=== PATIENT | male | born 1995 | race African-American/Black ===

== ENCOUNTER 2016-03-21 18:34 | Emergency (ER) | payer SELFPAY ==
[2016-03-21 18:43] VITALS: BP 135/78
[2016-03-21] MEDS ORDERED: Ibuprofen TAB* 400 MG PO ONE (20:00)
--- NOTE | 2016-03-21 20:14 | ED ---
Throat Pain/Nasal Congestion - HPI Summary HPI Summary: Pt here w/ dental pain - started after cracking a piece of his tooth off while eating earlier today. Pain is intermittent and he is having a difficult time tolerating it. Has not taken anything for this pain yet. No alleviating nor exacerbating factors. Denies recent pain, swelling or infection here. Has never seen a dentist. NOTE: was seen last week for gluteal abscess - pt reports this is completely better and did not need to take antibiotics. - History of Current Complaint Chief Complaint: EDDentalPain Time Seen by Provider: 03/21/16 19:57 Hx Obtained From: Patient - Allergies/Home Medications Allergies/Adverse Reactions: Allergies Allergy/AdvReac Type Severity Reaction Status Date / Time No Known Allergies Allergy Verified 05/09/15 12:15 PMH/Surg Hx/FS Hx/Imm Hx Previously Healthy: Yes - just recovered from gluteal abscess Endocrine/Hematology History: Denies: Hx Blood Disorders Respiratory History: Reports: Hx Asthma Infectious Disease History: No Infectious Disease History: Denies: Hx of Known/Suspected MRSA, Traveled Outside the [place] in Last 30 Days - Family History Known Family History: Positive: None - Social History Alcohol Use: None Hx Substance Use: No Substance Use Type: Reports: Marijuana Substance Use Comment - Amount & Last Used: last used today Smoking Status (MU): Never Smoked Tobacco Review of Systems Negative: Fever, Chills Negative: Drainage, Erythema Positive: Dental Pain - see HPI. Negative: Sore Throat, Ear Ache, Nasal Discharge Negative: Chest Pain Negative: Shortness Of Breath, Cough Negative: Abdominal Pain, Vomiting, Diarrhea, Nausea Positive: no symptoms reported Negative: Rash, Bruising Negative: Headache Psychological: Normal All Other Systems Reviewed And Are Negative: Yes Physical Exam Triage Information Reviewed: Yes Vital Signs On Initial Exam: Initial Vitals Temp Pulse Resp BP Pulse Ox 98.0 F 73 16 135/78 99 03/21/16 18:40 03/21/16 18:40 03/21/16 18:40 03/21/16 18:40 03/21/16 18:40 Vital Signs Reviewed: Yes Appearance: Positive: Well-Appearing, Well-Nourished, Pain Distress - mild Skin: Positive: Warm, Dry - no erythema over face Head/Face: Positive: Normal Head/Face Inspection - no edema, NTTP Eyes: Positive: Normal, EOMI, Conjunctiva Clear. Negative: Discharge ENT: Positive: Hearing grossly normal, Pharynx normal, TMs normal. Negative: Nasal congestion, Nasal drainage Dental: Positive: Dental Fracture @ - #18 - surface appears to have fractured away from tooth. Negative: Gross Decay/Caries @, Abscess @, Cellulitis @, Bleeding Neck: Positive: Supple, Nontender, No Lymphadenopathy Respiratory/Lung Sounds: Positive: Clear to Auscultation, Breath Sounds Present. Negative: Rales, Rhonchi, Stridor, Wheezes Cardiovascular: Positive: Normal, RRR Abdomen Description: Positive: Nontender Bowel Sounds: Positive: Present Musculoskeletal: Positive: Normal, Strength/ROM Intact - FROM neck w/o pain or restriction Neurological: Positive: Normal, Sensory/Motor Intact, Alert, Oriented to Person Place, Time, CN Intact II-III Psychiatric: Positive: Normal Procedures - Procedure Summary Procedure Summary: Pt rinsed mouth with sterile saline 5 x - then topical anesthetic w/ cetacaine applied - #18 sealed w/ dycal - pt reports pain resolved and tolerated procedure well Diagnostics - Vital Signs Vital Signs Temp Pulse Resp BP Pulse Ox 03/21/16 18:40 98.0 F 73 16 135/78 99 - Laboratory Lab Statement: Any lab studies that have been ordered have been reviewed, and results considered in the medical decision making process. Re-Evaluation - Re-Evaluation First Eval Change: Improved EENT Course/Dx - Diagnoses Provider Diagnoses: Tooth fracture Discharge - Discharge Plan Condition: Stable Disposition: HOME Prescriptions: Ibuprofen TAB* [Motrin TAB* 800 MG] 800 mg PO Q8HR PRN #20 tab PRN Reason: Pain Patient Education Materials: Acute Dental Trauma (ED) Referrals: No Primary Care Phys,NOPCP [Primary Care Provider] - Additional Instructions: You appear to have a dental fracture today. This has been temporarily repaired with a sealant however you need to follow up with your dentist JANENE. *If you develop fever, chills, neck pain or facial swelling, return to ED
== END 2016-03-21 20:29 | disposition home or self-care (01) ==
LOC: ED 18:34
DX: S02.5XXA Fracture of tooth (traumatic), initial encounter for closed fracture (principal); X58.XXXA Exposure to other specified factors, initial encounter; Y92.9 Unspecified place or not applicable
CPT/HCPCS: 99282; A9270-GY

== ENCOUNTER → 2017-04-07 10:53 | Emergency (ER) | payer OTHER ==
[~2017-04-07 10:53] MED LIST: Cephalexin CAP* 500 MG PO ONE; HYDROcodone/ACETAMIN 5-325 MG* 1 TAB PO ONE; Lidocaine 1%* 5 ML VIAL INJ ONE; Sulfamethox/Trimethoprim DS 800/160* TAB PO ONE; Tetan/Diph/Pertus SYR(Tdap)* 0.5 ML SYR(BOOSTRIX) use SYR IM ONE
[2017-04-07 10:57] VITALS: BP 142/75
--- NOTE | 2017-04-07 12:56 | ED ---
Skin Complaint - HPI Summary HPI Summary: 21 male presents to ED with complaints of a lump on his lower back that began ~ 4 days ago and has increased in size and has become more painful since. Admits to it being red. Has had one before a year ago without known etiology or complication. Denies IV drug use. Denies drainage or fever/chills. No other skin complaints. Patient denies PMHx. Has been taking ibuprofen without significant relief. States touch and applying pressure (sitting laying on) makes his pain worse. Did not have previous one I&D it popped, drain on own and resolved with antibiotics. No other complaints - History of Current Complaint Chief Complaint: EDRashSkinAbscess Time Seen by Provider: 04/07/17 12:02 Stated Complaint: LUMP ON BACK Hx Obtained From: Patient Onset/Duration: Started Days Ago, Still Present, Worse Since Skin Exposure Onset/Duration: Days Ago Timing: Constant Onset Severity: Mild Current Severity: Moderate Pain Intensity: 6 Pain Scale Used: 0-10 Numeric Skin Location: Discrete - "lower back" intergluteal cleft area Character: Swelling, Redness, Raised, Painful Aggravating Symptom(s): Nothing Alleviating Symptom(s): Nothing Associated Signs & Symptoms: Negative - Allergy/Home Medications Allergies/Adverse Reactions: Allergies Allergy/AdvReac Type Severity Reaction Status Date / Time No Known Allergies Allergy Verified 05/09/15 12:15 PMH/Surg Hx/FS Hx/Imm Hx Endocrine/Hematology History: Denies: Hx Blood Disorders Respiratory History: Reports: Hx Asthma - Surgical History Surgery Procedure, Year, and Place: n/a - Immunization History Immunizations Up to Date: Yes Infectious Disease History: No Infectious Disease History: Denies: Hx of Known/Suspected MRSA, Traveled Outside the in Last 30 Days - Family History Known Family History: Positive: None - Social History Alcohol Use: Occasionally Hx Substance Use: No Substance Use Type: Reports: None, Marijuana Substance Use Comment - Amount & Last Used: last used today Smoking Status (MU): Current Some Day Smoker Review of Systems Constitutional: Negative Cardiovascular: Negative Respiratory: Negative Positive: Rash - abscess, pain All Other Systems Reviewed And Are Negative: Yes Physical Exam Triage Information Reviewed: Yes Vital Signs On Initial Exam: Initial Vitals Temp Pulse Resp BP Pulse Ox 97.5 F 63 16 142/75 100 04/07/17 10:55 04/07/17 10:55 04/07/17 10:55 04/07/17 10:55 04/07/17 10:55 Vital Signs Reviewed: Yes Appearance: Positive: Well-Appearing, Well-Nourished, Pain Distress - mild to moderate not lying or sitting on bottom Skin: Positive: Warm, Skin Color Reflects Adequate Perfusion, Dry, Erythema @ - and edema, palpable indurated abscess with fluctuance at intergluteal cleft area tender and warm on palpation, Other - rest of skin exam normal. Negative: Cold, Numb, Cyanosis @, Pale Head/Face: Positive: Normal Head/Face Inspection Eyes: Positive: Conjunctiva Clear Neck: Positive: Supple, Nontender, No Lymphadenopathy Respiratory/Lung Sounds: Positive: Clear to Auscultation, Breath Sounds Present. Negative: Rales, Rhonchi, Wheezes Cardiovascular: Positive: Normal, RRR, Pulses are Symmetrical in both Upper and Lower Extremities Musculoskeletal: Positive: Normal, Strength/ROM Intact. Negative: Limited @, Interruption @, Pain @ Neurological: Positive: Normal, Sensory/Motor Intact, Alert, Oriented to Person Place, Time Procedures - Incision and Drainage Site: pilonidal cyst, intergluteal cleft area Anesthesia: Local, Lidocaine Instrument(s): Scalpel Packing: Gauze Diagnostics - Vital Signs Vital Signs Temp Pulse Resp BP Pulse Ox 04/07/17 10:55 97.5 F 63 16 142/75 100 - Laboratory Lab Statement: Any lab studies that have been ordered have been reviewed, and results considered in the medical decision making process. Course/Dx - Course Course Of Treatment: pilonidal cyst with abscess was I&D using sterile procedure without compliation. was packed with idoform. wound culture obtained and results pending. afebrile and normal vitals. no concern for sepsis at this time. will d/c on bactrim and keflex, given first dose while in ED. no toxic appearance. warm soaks, keep clean and dry. re-pack and evaluate in 2 days, aware of worsening signs and sympoms. naproxen for pain. No concerns for other etiology at this time. Follow up. - Differential Diagnoses - Skin Complaint Differential Diagnoses: Abscess, Cellulitis, MRSA, Other - pilonidal cyst - Diagnoses Provider Diagnoses: Pilonidal cyst with abscess Discharge - Discharge Plan Condition: Stable Disposition: HOME Prescriptions: Cephalexin CAP* [Keflex CAP*] 500 mg PO TID #30 cap Naproxen TAB* [Naprosyn 375 mg TAB*] 375 mg PO Q8H #15 tab Sulfamethox/Trimethoprim DS* [Bactrim DS 800/160 TAB*] 1 tab PO BID #20 tab Patient Education Materials: Pilonidal Cyst (ED), Abscess (ED), Incision and Drainage (ED), Abscess Follow-up (ED) Referrals: [facility] [Outside] Additional Instructions: Follow up in 2 days for re-evaluation and re-packing. Take prescribed antibiotic and pain medication as directed. Warm soaks, multiple times daily, keep clean and dry. Follow up with PCP. Any new or worsening symptoms please seek medical attention promptly, as discussed.
== END | disposition home or self-care (01) ==
LOC: ED 10:53
DX: L05.01 Pilonidal cyst with abscess (principal); F17.200 Nicotine dependence, unspecified, uncomplicated
CPT/HCPCS: 10080; 87070; 87205; 87640; 87641; 90715; 99282; A9270-GY

== ENCOUNTER 2017-10-20 15:43 | Emergency (ER) | payer SELFPAY ==
[2017-10-20] MEDS ORDERED: HYDROcodone/ACETAMIN 5-325 MG* 1 TAB PO ONE (16:21)
[2017-10-20] MEDS ORDERED: NS 0.9% 1000 ML* 1,000 ML IV ONE (16:57)
--- NOTE | 2017-10-20 17:16 | ED ---
Skin Complaint - HPI Summary HPI Summary: Patient is a 22-year-old male who presents emergency department for an abscess to his buttocks 4 days. Patient states he has had abscesses drained in the past. He states that he noticed a small painful lump to his right inner buttocks that has progressively gotten larger and more painful over the last 4 days. Patient states he is having issues walking and sitting secondary to pain. He denies past medical history. Denies fever, chills, nausea, vomiting. Symptoms are mild to moderate in severity. Touching affected area makes symptoms worse. Nothing makes symptoms better. - History of Current Complaint Chief Complaint: EDRashSkinAbscess Time Seen by Provider: 10/20/17 15:59 Stated Complaint: ABSCESS ON BACK Hx Obtained From: Patient Pain Intensity: 10 - Allergy/Home Medications Allergies/Adverse Reactions: Allergies Allergy/AdvReac Type Severity Reaction Status Date / Time No Known Allergies Allergy Verified 05/09/15 12:15 Home Medications: Home Medications NK [No Home Medications Reported] 10/20/17 [History Confirmed 10/20/17] PMH/Surg Hx/FS Hx/Imm Hx Previously Healthy: Yes Endocrine/Hematology History: Denies: Hx Blood Disorders Respiratory History: Reports: Hx Asthma - Surgical History Surgery Procedure, Year, and Place: n/a Infectious Disease History: No Infectious Disease History: Denies: Hx of Known/Suspected MRSA, Traveled Outside the [place] in Last 30 Days - Family History Known Family History: Positive: None Family History: Noncontributory - Social History Lives: With Family Alcohol Use: Daily Alcohol Amount: 16 beers yesterday, denies withdrawal sx Hx Substance Use: No Substance Use Type: Reports: Marijuana Substance Use Comment - Amount & Last Used: last used today Smoking Status (MU): Current Some Day Smoker Review of Systems Constitutional: Negative Negative: Fever, Chills Gastrointestinal: Negative Negative: Abdominal Pain, Vomiting, Nausea Positive: Other - buttocks abscess All Other Systems Reviewed And Are Negative: Yes Physical Exam Triage Information Reviewed: Yes Vital Signs On Initial Exam: Initial Vitals Temp Pulse Resp BP Pulse Ox 99 F 84 16 115/81 96 10/20/17 15:45 10/20/17 15:45 10/20/17 15:45 10/20/17 15:45 10/20/17 15:45 Vital Signs Reviewed: Yes Appearance: Positive: Pain Distress - Patient lying in prone position on bed, appears uncomfortable and nontoxic. Skin: Positive: Warm, Dry, Other - Roughly 7 cm area of indurated area of fluctuance, erythema and tenderness noted to the distal inner right buttocks extending into the rectum. No drainage. Head/Face: Positive: Normal Head/Face Inspection Eyes: Positive: Normal, EOMI Neck: Positive: Supple Neurological: Positive: Normal, CN Intact II-III Diagnostics - Vital Signs Vital Signs Temp Pulse Resp BP Pulse Ox 10/20/17 15:45 99 F 84 16 115/81 96 - Laboratory Lab Statement: Any lab studies that have been ordered have been reviewed, and results considered in the medical decision making process. Course/Dx - Course Course Of Treatment: Patient presenting to the ER for a buttocks abscess. He is afebrile and nontoxic appearing. Given the size and location of abscess it is concerning that the rectum or bowel may be involved. Will obtain CT scan with contrast for further evaluation of abscess. Basic blood work drawn. Patient started on IV fluids. Hydrocodone given for pain. Patient will be signed out to Rony Ramos for testing results, further care and appropriate disposition. - Differential Diagnoses - Skin Complaint Differential Diagnoses: Abscess, Cellulitis - Diagnoses Provider Diagnoses: Abscess and cellulitis of gluteal region Discharge - Sign-Out/Discharge Documenting (check all that apply): Sign-Out Patient Signing out patient TO: Rony Ramos - Discharge Plan Referrals: No Primary Care Phys,NOPCP [Primary Care Provider] -
[2017-10-20 17:20] LABS: ABS Basophils 0.1 10^3/ul (0-0.2); ABS Eosinophils 0.1 10^3/ul (0-0.6); ABS Lymphocytes 1.4 10^3/ul (1.0-4.8); ABS Monocytes 1.2 10^3/ul (0-0.8); ABS Neutrophils 10.2 10^3/ul (1.5-7.7); ABS Nucleated RBC 0 10^3/ul; Eosinophil % 0.7 % (0-6); Hematocrit 40 % (42-52); Hemoglobin 13.5 g/dl (14.0-18.0); Lymphocyte % 10.6 % (25-47); Mean Corpuscular HGB Conc 34 g/dl (31-36); Mean Corpuscular Hemoglobin 34 pg (27-31); Mean Corpuscular Volume 100 fL (80-94); Mean Platelet Volume 7.8 um3 (7.4-10.4); Nucleated Red Blood Cells % 0; Platelet Count 239 10^3/ul (150-450); Red Blood Count 3.94 10^6/ul (4.00-5.40); Red Cell Distribution Width 13 % (10.5-15); White Blood Count 12.9 10^3/ul (3.5-10.8)
[2017-10-20 17:34] LABS: EGFR Non-African American 95.1 (>60)
[2017-10-20] MEDS ORDERED: Iohexol 300* (CONTRAST) 10 ML SDV IV ONE (17:52)
--- NOTE | 2017-10-20 22:00 | RAD ---
EXAM: CT Pelvis With Intravenous Contrast CLINICAL HISTORY: 22 years old, male; Signs and symptoms; Mass, lump, or swelling; Other: Right buttock; Patient HX: Evaluate for abcess right buttock, difficulty in walking and sitting; Additional info: Abscess TECHNIQUE: Axial computed tomography images of the pelvis with intravenous contrast. All CT scans at this facility use at least one of these dose optimization techniques: automated exposure control; mA and/or kV adjustment per patient size (includes targeted exams where dose is matched to clinical indication); or iterative reconstruction. Coronal and sagittal reformatted images were created and reviewed. CONTRAST: 105 mL of OMNIPAQUE 300 administered intravenously. COMPARISON: No relevant prior studies available. FINDINGS: Bowel: Unremarkable. No obstruction. No mucosal thickening. Appendix: No findings to suggest acute appendicitis. Intraperitoneal space: Unremarkable. No free air. No significant fluid collection. Bladder: Unremarkable. No mass. Reproductive: Unremarkable as visualized. Bones/joints: No acute fracture. No dislocation. Soft tissues: Extensive edema and fat stranding of the medial right buttock. There is a enhancing fluid collection measuring 3.5 x 1.9 x 4 cm([id number]) in the medial right buttock. There is fat stranding and edema of the left medial buttock. Skin thickening of right medial buttock consistent with cellulitis. Vasculature: Unremarkable. No lower abdominal aortic aneurysm. Lymph nodes: Unremarkable. No enlarged lymph nodes. IMPRESSION: Right medial buttock fluid collection/abscess measuring 3.5 x 1.9 x 4.0 cm. Extensive soft tissue edema and fat stranding. Skin thickening of the medial right thigh consistent with cellulitis.
[2017-10-20] MEDS ORDERED: Bupivacaine 0.25% EPI 200,000* 30 ML SDV INJ ONE (22:36)
[2017-10-20] MEDS ORDERED: Bupivacaine 0.5% W/EPI SDV* 30 ML VIAL ONE (22:46)
--- NOTE | 2017-10-20 23:34 | PN ---
Progress Note - Progress Note Date of Service: 10/20/17 Note: CT pelvis NEG for abscess involvement of anus/sphincter. Abscess drained by I+ D. Betadine prep. #11 blade used. positive drainage of purulence. drained abscess packed with iodoform. Wound covered with nonstick pad. Wound culture taken Patient will be discharged home with Rx for Bactrim. Return in 2-3 days for wound check.
[2017-10-20] MEDS ORDERED: Sulfamethox/Trimethoprim DS 800/160* TAB PO ONE (23:39)
[2017-10-20 23:51] VITALS: BP 124/74
== END 2017-10-20 23:45 | disposition home or self-care (01) ==
LOC: ED 15:43
DX: N39.0 Urinary tract infection, site not specified (principal); R51 Headache; R50.9 Fever, unspecified
CPT/HCPCS: 36415; 72193; 80053; 85025; 99283; A9270-GY; Q9967

== ENCOUNTER 2017-11-09 23:28 | Emergency (ER) | payer SELFPAY ==
[2017-11-09 23:40] VITALS: BP 146/89
[2017-11-10] MEDS ORDERED: Tetan/Diph/Pertus SYR(Tdap)* 0.5 ML SYR(BOOSTRIX) use SYR IM ONE (00:12)
[2017-11-10] MEDS ORDERED: oxyCODONE/Acetamin 5/325 MG* TAB PO ONE (00:12)
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
== END 2017-11-10 02:04 | disposition home or self-care (01) ==
LOC: ED 23:28
DX: S01.81XA Laceration without foreign body of other part of head, initial encounter (principal); Y04.2XXA Assault by strike against or bumped into by another person, initial encounter; Y93.01 Activity, walking, marching and hiking; Y92.89 Other specified places as the place of occurrence of the external cause; Z23 Encounter for immunization; Z72.0 Tobacco use
CPT/HCPCS: 70450; 70486; 90471; 90715; 99283; A9270-GY

== ENCOUNTER 2018-03-19 08:53 | Emergency (ER) | payer SELFPAY ==
[2018-03-19] MEDS ORDERED: Ibuprofen TAB* 600 MG PO ONE (10:35)
--- NOTE | 2018-03-19 10:40 | ED ---
Back Pain - HPI Summary HPI Summary: Patient presents with central lower back pain over the past couple months. He admits he has been [facility] a [facility] a prison which may be exacerbating his back pain. He denies any acute injury as well as radiating pain into his buttocks or legs. Denies numbness, tingling, weakness. He is tried heat and ice which provides temporary relief but has not taken any oral meds as he does not like to "pop pills". Denies fever, chills, urinary symptoms, abdominal pain and he is moving his urine and bowels well without difficulty/change. - History of Current Complaint Chief Complaint: EDBackInjuryPain Stated Complaint: BACK PAIN Time Seen by Provider: 03/19/18 09:46 Hx Obtained From: Patient Pain Intensity: 2 - Allergies/Home Medications Allergies/Adverse Reactions: Allergies Allergy/AdvReac Type Severity Reaction Status Date / Time No Known Allergies Allergy Verified 11/09/17 23:38 PMH/Surg Hx/FS Hx/Imm Hx Previously Healthy: Yes Endocrine/Hematology History: Denies: Hx Blood Disorders, Hx Diabetes Respiratory History: Reports: Hx Asthma History: Denies: Hx Renal Disease Sensory History: Reports: Hx Contacts or Glasses Opthamlomology History: Reports: Hx Contacts or Glasses - Surgical History Surgery Procedure, Year, and Place: As per patient, no prior surgeries noted. Infectious Disease History: No Infectious Disease History: Denies: Hx of Known/Suspected MRSA, Traveled Outside the [place] in Last 30 Days - Family History Known Family History: Positive: Diabetes, Other - [place] Negative: Hypertension - Social History Lives: Dormitory/Roommates - prison Alcohol Use: None Alcohol Amount: 16 beers yesterday, denies withdrawal sx Hx Substance Use: No Substance Use Type: Reports: Marijuana Substance Use Comment - Amount & Last Used: last used today Hx Tobacco Use: Yes Smoking Status (MU): Current Some Day Smoker Review of Systems Constitutional: Negative Gastrointestinal: Negative Genitourinary: Negative Positive: Arthralgia - LBP Skin: Negative Neurological: Negative Psychological: Normal All Other Systems Reviewed And Are Negative: Yes Physical Exam Triage Information Reviewed: Yes Vital Signs On Initial Exam: Initial Vitals Temp Pulse Resp BP Pulse Ox 97.5 F 69 16 147/100 99 03/19/18 08:56 03/19/18 08:56 03/19/18 08:56 03/19/18 08:56 03/19/18 08:56 Vital Signs Reviewed: Yes Appearance: Positive: Well-Appearing, Well-Nourished, Pain Distress - mild Skin: Positive: Warm, Skin Color Reflects Adequate Perfusion, Dry - no erythema , no ecchymosis over affected area Head/Face: Positive: Normal Head/Face Inspection Eyes: Positive: EOMI ENT: Positive: Hearing grossly normal Respiratory/Lung Sounds: Positive: Breath Sounds Present Cardiovascular: Positive: Pulses are Symmetrical in both Upper and Lower Extremities. Negative: Leg Edema Left, Leg Edema Right Musculoskeletal: Positive: Strength/ROM Intact, Pain @ - reports pain in central lumbar region - NTTP (deeper) Neurological: Positive: Normal, Sensory/Motor Intact - can single leg stand B/L w/o pain but reports mild discomfort w/ forward flexion and extension of lower back, Alert, Oriented to Person Place, Time, CN Intact II-III Psychiatric: Positive: Normal Diagnostics - Vital Signs Vital Signs Temp Pulse Resp BP Pulse Ox 03/19/18 09:44 56 97 03/19/18 09:42 56 133/89 98 03/19/18 08:56 97.5 F 69 16 147/100 99 - Laboratory Lab Statement: Any lab studies that have been ordered have been reviewed, and results considered in the medical decision making process. Back Pain Course/Dx - Course Course Of Treatment: XR: no acute or chronic findings. Suspect lumbar strain, possibly from mattress, footwear, lack of core strength, etc. Advised to implement supportive care and f/u w/ PCP ([facility] if no PCP). Reviewed danger s/sx of when to return to ED. - Diagnoses Provider Diagnoses: Lumbar pain Discharge - Sign-Out/Discharge Documenting (check all that apply): Patient Departure - Discharge Plan Condition: Stable Disposition: HOME Prescriptions: Acetaminophen TAB* [Tylenol TAB*] 650 mg PO Q6H PRN #60 tab PRN Reason: Pain Ibuprofen TAB* [Motrin TAB* 600 MG] 600 mg PO Q6H PRN #60 tab PRN Reason: Pain Patient Education Materials: Back Pain (ED) Referrals: No Primary Care Phys,NOPCP [Primary Care Provider] - Additional Instructions: Rest, ice, heat alternating with ice and stretches Take ibuprofen with food alternating with acetaminophen for pain If pain persists, follow-up at [facility]: Address: [address] [place] [address] *If you develop numbness, tingling, weakness, change in bowel/bladder habits, return to ED - Billing Disposition and Condition Condition: STABLE Disposition: Home
[2018-03-19 11:44] VITALS: BP 142/100
== END 2018-03-19 11:43 | disposition home or self-care (01) ==
LOC: ED 08:53
DX: M54.5 Low back pain (principal); F17.200 Nicotine dependence, unspecified, uncomplicated; J45.909 Unspecified asthma, uncomplicated
CPT/HCPCS: 72100; 99283; A9270-GY

== ENCOUNTER 2018-08-08 13:33 | Emergency (ER) | payer OTHER ==
[2018-08-08] MEDS ORDERED: Tetan/Diph/Pertus SYR(Tdap)* 0.5 ML SYR(BOOSTRIX) use SYR IM ONE (15:31)
[2018-08-08 15:51] VITALS: BP 0/0
--- NOTE | 2018-08-08 16:23 | ED ---
Laceration/Wound HPI - HPI Summary HPI Summary: Patient is a 23-year-old male presenting to the ED with a left upper lip laceration. He states I was "doing stupid stuff." However, he does not divulge any other information. He denies any pain. Denies any pain to the teeth, cheek, jaw or any headaches. There is a small 0.7 cm superficial laceration to the left upper lip without crossing the vermilion border. Denies tetanus up-to-date. - History of Current Complaint Stated Complaint: "LIP LACERATION PER PT" Time Seen by Provider: 08/08/18 14:42 Hx Obtained From: Patient Mechanism of Injury: Sharp/Blunt Trauma Onset/Duration: Sudden Onset Aggravating: Movement Alleviating: Compression Timing: Constant Onset Severity: Mild Current Severity: None Pain Intensity: 0 Pain Scale Used: 0-10 Numeric Associated Signs & Symptoms: Negative - Allergy/Home Medications Allergies/Adverse Reactions: Allergies Allergy/AdvReac Type Severity Reaction Status Date / Time No Known Allergies Allergy Verified 08/08/18 13:59 PMH/Surg Hx/FS Hx/Imm Hx Previously Healthy: Yes Endocrine/Hematology History: Denies: Hx Blood Disorders, Hx Diabetes Respiratory History: Reports: Hx Asthma History: Denies: Hx Renal Disease Sensory History: Reports: Hx Contacts or Glasses Opthamlomology History: Reports: Hx Contacts or Glasses - Surgical History Surgery Procedure, Year, and Place: As per patient, no prior surgeries noted. - Immunization History Hx Pertussis Vaccination: No Immunizations Up to Date: Yes Infectious Disease History: No Infectious Disease History: Denies: Hx of Known/Suspected MRSA, Traveled Outside the [place] in Last 30 Days - Family History Known Family History: Positive: Diabetes, Other - [place] Negative: Hypertension - Social History Occupation: Unemployed Lives: With Family Alcohol Use: Occasionally Alcohol Amount: 16 beers yesterday, denies withdrawal sx Hx Substance Use: No Substance Use Type: Reports: Marijuana Substance Use Comment - Amount & Last Used: last used today Hx Tobacco Use: Yes Smoking Status (MU): Light Every Day Tobacco Smoker Review of Systems Constitutional: Negative Negative: Fever, Chills, Fatigue, Skin Diaphoresis Negative: Palpitations, Chest Pain Negative: Shortness Of Breath, Cough Genitourinary: Negative Positive: no symptoms reported, see HPI Negative: Arthralgia, Myalgia Positive: Other - laceration to left upper left Neurological: Negative All Other Systems Reviewed And Are Negative: Yes Physical Exam Triage Information Reviewed: Yes Vital Signs On Initial Exam: Initial Vitals Temp Pulse Resp BP Pulse Ox 98.9 F 62 16 140/87 98 08/08/18 13:54 08/08/18 13:54 08/08/18 13:54 08/08/18 13:54 08/08/18 13:54 Vital Signs Reviewed: Yes Appearance: Positive: Well-Appearing, Well-Nourished Skin: Positive: Warm, Skin Color Reflects Adequate Perfusion, Other - left lip laceration - .7cm Head/Face: Positive: Normal Head/Face Inspection Eyes: Positive: EOMI, Conjunctiva Clear Neck: Positive: Supple, No Lymphadenopathy Respiratory/Lung Sounds: Positive: Clear to Auscultation, Breath Sounds Present Cardiovascular: Positive: RRR, Pulses are Symmetrical in both Upper and Lower Extremities Musculoskeletal: Positive: Strength/ROM Intact Neurological: Positive: Speech Normal Psychiatric: Positive: Affect/Mood Appropriate Diagnostics - Vital Signs Vital Signs Temp Pulse Resp BP Pulse Ox 08/08/18 15:51 0 F 0 0 0/0 0 08/08/18 13:54 98.9 F 62 16 140/87 98 - Laboratory Lab Statement: Any lab studies that have been ordered have been reviewed, and results considered in the medical decision making process. Laceration Repair Course/Dx - Course Course Of Treatment: Patient is evaluated for left upper lip laceration which is measuring approximately 0.7 cm in length and is very superficial. This does not cross the vermilion border. Cleanse wound thoroughly. Tetanus was updated. 1 mL lidocaine without epi used as local anesthetic into the wound. This was with good effect. 3 sutures using 5-0 Prolene simple interrupted. Suture removal in 5 days. - Clinical Impression Provider Diagnoses: Laceration of lip Discharge - Sign-Out/Discharge Documenting (check all that apply): Patient Departure Patient Received Moderate/Deep Sedation with Procedure: No - Discharge Plan Condition: Stable Disposition: HOME Patient Education Materials: Care For Your Stitches (ED), Laceration (ED) Referrals: No Primary Care Phys,NOPCP [Primary Care Provider] - Additional Instructions: Suture removal in 5 days You may notice some bleeding in the next several hours, this is normal Be careful with eating over the next 5 days Do not eating anything with sharp edges that can get caught in the sutures If the sutures breaks, you do not need to return to the ED, however if all of them break he will need to return to the ED - Billing Disposition and Condition Condition: STABLE Disposition: Home
== END 2018-08-08 15:51 | disposition home or self-care (01) ==
LOC: ED 13:33
DX: S01.511A Laceration without foreign body of lip, initial encounter (principal); X58.XXXA Exposure to other specified factors, initial encounter; Y92.9 Unspecified place or not applicable; Z23 Encounter for immunization; F17.200 Nicotine dependence, unspecified, uncomplicated
CPT/HCPCS: 12011; 90471; 90715; 99282

== ENCOUNTER 2021-09-04 02:12 | Observation (INO) ==
[2021-09-04 02:43] LABS: ABS Basophils 0.1 10^3/ul (0-0.2); ABS Eosinophils 0.2 10^3/ul (0-0.6); ABS Lymphocytes 3.2 10^3/ul (1.0-4.8); ABS Neutrophils 6.5 10^3/ul (1.5-7.7); Eosinophil % 1.5 %; Hematocrit 43 % (42-52); Hemoglobin 14.4 g/dL (14.0-18.0); Lymphocyte % 28.8 %; Mean Corpuscular HGB Conc 34 g/dL (31-36); Mean Corpuscular Hemoglobin 34 pg (27-31); Mean Corpuscular Volume 101 fL (80-94); Mean Platelet Volume 8.2 fL (7.4-10.4); Platelet Count 269 10^3/uL (150-450); Red Blood Count 4.25 10^6 /uL (4.18-5.48); Red Cell Distribution Width 13 % (10-15)
[2021-09-04 02:49] LABS: INR 0.93 (0.86-1.15)
[2021-09-04 03:01] LABS: Albumin 4.5 g/dL (3.2-5.2); Calcium 8.8 mg/dL (8.6-10.3); Total Bilirubin 0.5 mg/dL (0.2-1.0); eGFR CKD-EPI 111.8 (>60)
[2021-09-04] MEDS ORDERED: fentaNYL 250 mcg/5 ml 50 MCG/ML 5 ml VIAL (250 MCG) ONE (03:23)
[2021-09-04 03:32] LABS: Potassium 3.7 mmol/L (3.5-5.0)
[2021-09-04 03:41] LABS: Albumin/Globulin Ratio 1.5 (1-3); Total Protein 7.5 g/dL (6.4-8.9)
[2021-09-04] MEDS ORDERED: fentaNYL 100 mcg/2 ml 50 MCG/ML VIAL IV SLOW PU ONE (03:57)
[2021-09-04] MEDS ORDERED: Ondansetron 4 mg VIAL 2 MG/ML 2 ml VIAL IV PRN (04:16)
[2021-09-04] MEDS ORDERED: HYDROmorphone 0.5 MG/0.5 ML SYRINGE IV SLOW PU PRN (04:44)
[2021-09-04 05:32] LABS: High Sensitivity Troponin 1 Hr 4 pg/mL (<20)
[2021-09-05] MEDS: Multivitamins/Minerals TAB PO SCH (09:46)
[2021-09-05 11:29] LABS: High Sensitivity Troponin 3 Hr 3 pg/mL (<20)
[2021-09-06] MEDS: Multivitamins/Minerals TAB PO SCH (08:04)
[2021-09-07] MEDS: Multivitamins/Minerals TAB PO SCH (08:24)
[2021-09-07 11:03] VITALS: BP 152/92
[2021-09-07 11:42] LABS: Rapid COVID-19 Molecular Undetected (Undetected)
== END 2021-09-07 15:46 | disposition short-term general hospital (02) ==
LOC: ED 02:12 → EDHOLD 02:12 → SSU 10:08
PROVIDERS: ADMIT Surgery; ATTEND Surgery